=== PATIENT | male | born 1985 | race Caucasian/White ===

== ENCOUNTER 2017-12-07 22:20 | Emergency (ER) | payer BC ==
[2017-12-07] MEDS ORDERED: ONDANSETRON 4 MG/2 ML VIAL IVP STA (23:05)
[2017-12-07] MEDS ORDERED: SODIUM CHLORIDE 0.9% 1,000 ML IV STA (23:05)
[2017-12-07] MEDS ORDERED: PANTOPRAZOLE 40 MG/10 ML VIAL IVP STA (23:05)
--- NOTE | 2017-12-07 23:27 | ED ---
General Adult HPI - General Chief complaint: Nausea/Vomiting/Diarrhea Stated complaint: throwing up blood/SOB/Chest Pain Time Seen by Provider: 12/07/17 22:57 Source: patient, RN notes reviewed Mode of arrival: ambulatory Limitations: no limitations - History of Present Illness Initial comments: Patient 32-year-old male who presents emergency room today with multiple complaints. He does admit that over the last few weeks she's had symptoms of nausea and vomiting. Does admit to abdominal pain. He states had similar symptoms to this in the past was worked up several years ago for this with both colonoscopy and EGD. Patient states that he is taking medications for stomach acid. He states seemed to improve for a while but over the last month has had increased symptoms. Patient states that he's also had some lower back pain which she feels is muscular skeletal from all the nausea and vomiting. He also admits that he feels short of breath. Feels a heaviness over his chest. Patient admits that the symptoms better and off and on as well over the last week. Patient denies any other complaints or symptoms. Patient denies any recent fever, chills, numbness or tingling, dysuria or hematuria, constipation or diarrhea, headaches or visual changes, or any other complaints. - Related Data Home Medications Medication Instructions Recorded Confirmed Lisinopril-Hctz (Unknown Dose) 1 tab PO DAILY 12/07/17 12/07/17 Omeprazole [PriLOSEC] 20 mg PO AC-BRKFST 12/07/17 12/07/17 Previous Rx's Medication Instructions Recorded Azithromycin [Zithromax Z-pack] 0 mg PO DIRECTED #6 tab 12/08/17 Famotidine [Pepcid] 20 mg PO BID #20 tablet 12/08/17 Ondansetron Odt [Zofran ODT] 4 mg PO Q8HR PRN #20 tab 12/08/17 Allergies Allergy/AdvReac Type Severity Reaction Status Date / Time amoxicillin Allergy Rash/Hives Verified 12/07/17 22:37 Review of Systems ROS Statement: Those systems with pertinent positive or pertinent negative responses have been documented in the HPI. ROS Other: All systems not noted in ROS Statement are negative. Past Medical History Past Medical History: Hypertension History of Any Multi-Drug Resistant Organisms: None Reported Past Surgical History: No Surgical Hx Reported Past Psychological History: Anxiety Smoking Status: Never smoker Past Alcohol Use History: Occasional Past Drug Use History: None Reported General Exam - General Exam Comments Initial Comments: General: The patient is awake and alert, in no distress, and does not appear acutely ill. Eye: Pupils are equal, round and reactive to light, extra-ocular movements are intact. No nystagmus. There is normal conjunctiva bilaterally. No signs of icterus. Ears, nose, mouth and throat: There are moist mucous membranes and no oral lesions. Neck: The neck is supple, there is no tenderness or JVD. Cardiovascular: There is a regular rate and rhythm. No murmur, rub or gallop is appreciated. Respiratory: Lungs are clear to auscultation, respirations are non-labored, breath sounds are equal. No wheezes, stridor, rales, or rhonchi. Gastrointestinal: Normal. His the abdomen. Normal bowel sounds. Abdomen soft on palpation. Patient does have tenderness epigastric right upper quadrants. No rebound tenderness. No guarding. Musculoskeletal: Normal ROM, no tenderness. Strength 5/5. Sensation intact. Pulses equal bilaterally 2+. Neurological: A&O x 3. CN II-XII intact, There are no obvious motor or sensory deficits. Coordination appears grossly intact. Speech is normal. Skin: Skin is warm and dry and no rashes or lesions are noted. Psychiatric: Cooperative, appropriate mood & affect, normal judgment. Limitations: no limitations Course Vital Signs 12/07/17 22:27 Temperature 99.0 F Pulse Rate 120 H Respiratory 18 Rate Blood Pressure 157/102 O2 Sat by Pulse 94 L Oximetry Medical Decision Making - Medical Decision Making Case discussed in detail with attending physician Dr. Ceja. Patient is also reviewed and shows no evidence of cholecystitis. No cholelithiasis. Patient's labs been reviewed. Mildly elevated CK level. Troponin negative. Chest x-ray reviewed shows poor inspiratory effort but possibility of infiltrate in the lower lung adamson. Patient does admit to some cough congestion over the last few weeks. He doesn't speak production. Patient will be given dose of Rocephin here in emergency room. Will be treated with azithromycin to cover for possible pneumonia. Patient will also be treated with nausea medication for her symptoms and advised to use Pepcid as well. He is advised follow-up with his family doctor also given GI follow-up with. Advised return here to the emergency room symptoms increase worsen or for any other concerns. - Lab Data Result diagrams: 12/07/17 23:29 12/07/17 23:29 Lab Results 12/07/17 12/07/17 12/07/17 Range/Units 23:29 23:29 23:29 WBC 9.6 (3.8-10.6) k/uL RBC 5.35 (4.30-5.90) m/uL Hgb 14.4 (13.0-17.5) gm/dL Hct 45.3 (39.0-53.0) % MCV 84.6 (80.0-100.0) fL MCH 26.9 (25.0-35.0) pg MCHC 31.8 (31.0-37.0) g/dL RDW 14.9 (11.5-15.5) % Plt Count 347 (150-450) k/uL Neutrophils % 80 % Lymphocytes % 9 % Monocytes % 5 % Eosinophils % 3 % Basophils % 0 % Neutrophils # 7.7 (1.3-7.7) k/uL Lymphocytes # 0.9 L (1.0-4.8) k/uL Monocytes # 0.5 (0-1.0) k/uL Eosinophils # 0.3 (0-0.7) k/uL Basophils # 0.0 (0-0.2) k/uL PT (9.0-12.0) sec INR (<1.2) APTT (22.0-30.0) sec D-Dimer (<0.60) mg/L FEU Sodium 139 (137-145) mmol/L Potassium 4.0 (3.5-5.1) mmol/L Chloride 100 (98-107) mmol/L Carbon Dioxide 26 (22-30) mmol/L Anion Gap 13 mmol/L BUN 12 (9-20) mg/dL Creatinine 0.90 (0.66-1.25) mg/dL Est GFR (MDRD) Af Amer >60 (>60 ml/min/1.73 sqM) Est GFR (MDRD) Non-Af >60 (>60 ml/min/1.73 sqM) Glucose 111 H (74-99) mg/dL Calcium 9.5 (8.4-10.2) mg/dL Total Bilirubin 0.3 (0.2-1.3) mg/dL AST 35 (17-59) U/L ALT 71 (21-72) U/L Alkaline Phosphatase 81 (38-126) U/L Total Creatine Kinase 589 H (55-170) U/L CK-MB (CK-2) 3.4 H* (0.0-2.4) ng/mL CK-MB (CK-2) Rel Index 0.6 Troponin I <0.012 (0.000-0.034) ng/mL Total Protein 7.2 (6.3-8.2) g/dL Albumin 4.1 (3.5-5.0) g/dL Amylase 43 (30-110) U/L Lipase 46 (23-300) U/L Urine Color Urine Appearance (Clear) Urine pH (5.0-8.0) Ur Specific [place] (1.001-1.035) Urine Protein (Negative) Urine Glucose (UA) (Negative) Urine Ketones (Negative) Urine Blood (Negative) Urine Nitrite (Negative) Urine Bilirubin (Negative) Urine Urobilinogen (<2.0) mg/dL Ur Leukocyte Esterase (Negative) 12/07/17 12/08/17 Range/Units 23:29 00:30 WBC (3.8-10.6) k/uL RBC (4.30-5.90) m/uL Hgb (13.0-17.5) gm/dL Hct (39.0-53.0) % MCV (80.0-100.0) fL MCH (25.0-35.0) pg MCHC (31.0-37.0) g/dL RDW (11.5-15.5) % Plt Count (150-450) k/uL Neutrophils % % Lymphocytes % % Monocytes % % Eosinophils % % Basophils % % Neutrophils # (1.3-7.7) k/uL Lymphocytes # (1.0-4.8) k/uL Monocytes # (0-1.0) k/uL Eosinophils # (0-0.7) k/uL Basophils # (0-0.2) k/uL PT 10.0 (9.0-12.0) sec INR 1.0 (<1.2) APTT 23.9 (22.0-30.0) sec D-Dimer 0.20 (<0.60) mg/L FEU Sodium (137-145) mmol/L Potassium (3.5-5.1) mmol/L Chloride (98-107) mmol/L Carbon Dioxide (22-30) mmol/L Anion Gap mmol/L BUN (9-20) mg/dL Creatinine (0.66-1.25) mg/dL Est GFR (MDRD) Af Amer (>60 ml/min/1.73 sqM) Est GFR (MDRD) Non-Af (>60 ml/min/1.73 sqM) Glucose (74-99) mg/dL Calcium (8.4-10.2) mg/dL Total Bilirubin (0.2-1.3) mg/dL AST (17-59) U/L ALT (21-72) U/L Alkaline Phosphatase (38-126) U/L Total Creatine Kinase (55-170) U/L CK-MB (CK-2) (0.0-2.4) ng/mL CK-MB (CK-2) Rel Index Troponin I (0.000-0.034) ng/mL Total Protein (6.3-8.2) g/dL Albumin (3.5-5.0) g/dL Amylase (30-110) U/L Lipase (23-300) U/L Urine Color Yellow Urine Appearance Clear (Clear) Urine pH 7.5 (5.0-8.0) Ur Specific [place] 1.016 (1.001-1.035) Urine Protein Negative (Negative) Urine Glucose (UA) Negative (Negative) Urine Ketones Negative (Negative) Urine Blood Negative (Negative) Urine Nitrite Negative (Negative) Urine Bilirubin Negative (Negative) Urine Urobilinogen <2.0 (<2.0) mg/dL Ur Leukocyte Esterase Negative (Negative) Disposition Clinical Impression: Community acquired pneumonia, Abdominal pain, Nausea & vomiting Disposition: HOME SELF-CARE Condition: Good Instructions: Acute Nausea and Vomiting (ED) Additional Instructions: Please use medication as discussed. Please follow-up with GI/family doctor in the next 2 days of symptoms have not improved. Please return to emergency room if the symptoms increase or worsen or for any other concerns. Prescriptions: Azithromycin [Zithromax Z-pack] 0 mg PO DIRECTED #6 tab Famotidine [Pepcid] 20 mg PO BID #20 tablet Ondansetron Odt [Zofran ODT] 4 mg PO Q8HR PRN #20 tab PRN Reason: Nausea Referrals: Tacho Jain MD [Primary Care Provider] - 1-2 days Vika Saldivar MD [STAFF PHYSICIAN] - 1-2 days Time of Disposition: 01:04
[2017-12-07 23:38] LABS: Basophils % (A) 0 %; Eosinophils # (A) 0.3 k/uL (0-0.7); Eosinophils % (A) 3 %; HCT 45.3 % (39.0-53.0); HGB 14.4 gm/dL (13.0-17.5); Lymphocytes # (A) 0.9 k/uL (1.0-4.8); Lymphocytes % (A) 9 %; MCH 26.9 pg (25.0-35.0); MCHC 31.8 g/dL (31.0-37.0); MCV 84.6 fL (80.0-100.0); Mean Platelet Volume 6.9; Monocytes # (A) 0.5 k/uL (0-1.0); Monocytes % (A) 5 %; Neutrophils # (A) 7.7 k/uL (1.3-7.7); Neutrophils % (A) 80 %; Platelet Count 347 k/uL (150-450); RBC 5.35 m/uL (4.30-5.90); RDW 14.9 % (11.5-15.5); WBC 9.6 k/uL (3.8-10.6)
[2017-12-07 23:47] LABS: D-Dimer 0.2 mg/L FEU (<0.60)
[2017-12-07 23:51] LABS: ALT 71 U/L (21-72); AST 35 U/L (17-59); Albumin 4.1 g/dL (3.5-5.0); Alkaline Phosphatase 81 U/L (38-126); Amylase 43 U/L (30-110); Anion Gap 13 mmol/L; Blood Urea Nitrogen 12 mg/dL (9-20); Calcium 9.5 mg/dL (8.4-10.2); Carbon Dioxide 26 mmol/L (22-30); Chloride 100 mmol/L (98-107); Glucose 111 mg/dL (74-99); Lipase 46 U/L (23-300); Partial Thromboplastin Time 23.9 sec (22.0-30.0); Sodium 139 mmol/L (137-145); Total Bilirubin 0.3 mg/dL (0.2-1.3); Total Protein 7.2 g/dL (6.3-8.2)
[2017-12-08 00:06] LABS: Creatine Kinase 589 U/L (55-170)
[2017-12-08 00:18] LABS: Troponin I <0.012 ng/mL (0.000-0.034)
--- NOTE | 2017-12-08 00:21 | XR ---
EXAM: XR Chest, 2 Views CLINICAL HISTORY: SOB TECHNIQUE: Frontal and lateral views of the chest. COMPARISON: 01/05/2016. FINDINGS: Lungs: Low lung volumes with probable predominantly bibasilar atelectatic changes. Bibasilar infiltrates cannot be definitively excluded. Peribronchial cuffing is suggested, which may represent mild pulmonary edema versus inflammatory airways disease. This also may be secondary to low lung volumes. Pleural space: No pleural effusions. No pneumothorax. Heart: Unremarkable. No cardiomegaly. Mediastinum: Unremarkable. Bones/joints: Osseous structures are unchanged. IMPRESSION: 1. Low lung volumes with probable predominantly bibasilar atelectatic changes. Bibasilar infiltrates cannot be definitively excluded. 2. Peribronchial cuffing is suggested, which may represent mild pulmonary edema versus inflammatory airways disease. This also may be secondary to low lung volumes. Correlate clinically.
--- NOTE | 2017-12-08 00:26 | US ---
EXAM: US Abdomen Limited, Right Upper Quadrant CLINICAL HISTORY: Right upper quadrant pain TECHNIQUE: Real-time ultrasound of the right upper quadrant with image documentation. COMPARISON: No relevant prior studies available. FINDINGS: Limitations: Exam was limited secondary to patient body habitus. Liver: There is a diffuse increase in the echogenicity of the liver consistent with hepatic steatosis. No intrahepatic bile duct dilation. Gallbladder: Unremarkable. No gallstones. A sonographic Crocker's sign was not elicited during the exam. Common bile duct: The CBD measures up to 0.5 cm, which is normal. No stones. No dilation. Pancreas: The pancreas was obscured by overlying bowel gas. Right kidney: The right kidney measures up to 11.8 cm in length. No stones. No hydronephrosis. IMPRESSION: Hepatic steatosis.
[2017-12-08 00:28] LABS: Creatine Kinase MB 3.4 ng/mL (0.0-2.4)
[2017-12-08 00:42] LABS: Appearance,Urine Clear (Clear); Bilirubin,Urine Negative (Negative); Blood,Urine Negative (Negative); Color,Urine Yellow; Glucose,Urine (UA) Negative (Negative); Ketones,Urine Negative (Negative); Leukocyte Esterase,Urine Negative (Negative); Nitrite,Urine Negative (Negative); PH, Urine 7.5 (5.0-8.0); Protein,Urine Negative (Negative); Specific Gravity,Urine 1.016 (1.001-1.035); Urobilinogen,Urine <2.0 mg/dL (<2.0)
[2017-12-08] MEDS ORDERED: cefTRIAXone IN SWFI 1,000 MG/10 ML SYRINGE IVP STA (01:04)
[2017-12-08 01:25] VITALS: BP 147/84; PULSE 108; RESP 17; TEMP 97.9
== END 2017-12-08 01:25 | disposition home or self-care (01) ==
LOC: EC 22:20
DX: R11.2 Nausea with vomiting, unspecified (principal); J18.9 Pneumonia, unspecified organism; R10.9 Unspecified abdominal pain; I10 Essential (primary) hypertension; Z79.899 Other long term (current) drug therapy; Z88.0 Allergy status to penicillin
CPT/HCPCS: 36415; 93005; 85379; 80053; 82150; 82550; 82553; 83690; 84484; 85025; 85610; 85730; 81003; 71046; 76705; 99284; 96374; 96375 ×2; 96361; J2405; J0696; C9113

== ENCOUNTER 2018-06-12 09:06 | Emergency (ER) | payer BC ==
[2018-06-12 09:17] VITALS: RESP 18
[2018-06-12 09:26] VITALS: BP 160/65; PULSE 90; TEMP 97.8
--- NOTE | 2018-06-12 09:48 | XR ---
EXAMINATION TYPE: XR ankle complete RT DATE OF EXAM: 06/12/2018 CLINICAL HISTORY: Right ankle and right heel pain for 2 months after rolling injury TECHNIQUE: Frontal, lateral and oblique images of the right ankle are obtained. COMPARISON: None. FINDINGS: There is no acute fracture/dislocation evident in the right ankle. The ankle mortise appe ars within normal limits. The overlying soft tissue appears unremarkable. Small Achilles and plantar enthesophytes/heel spurs are present. IMPRESSION: There is no acute fracture or dislocation in the right ankle. Considering the persistent symptoms MRI could be performed nonemergently to evaluate for ligamentous/soft tissue injury.
--- NOTE | 2018-06-12 09:57 | ED ---
Extremity Problem HPI - General Chief complaint: Extremity Problem,Nontraumatic Stated complaint: rt ankle injury Time Seen by Provider: 06/12/18 09:17 Source: patient, RN notes reviewed Mode of arrival: ambulatory Limitations: no limitations - History of Present Illness Initial comments: 32-year-old male presents emergency Department with chief complaint of right foot and ankle pain. He states she's been having some issues over the last couple months states that he is tried different orthotics, shoes. He states he especially feels that when he plays softball. He states last night he was running to first landed on first and states that he felt a sharp pain which to the ground. He states the pain starts from his heel with across the arch of his foot but he does have some pain towards the posterior aspect of his leg. Patient denies any paresthesias denies any recent fractures. - Related Data Home Medications Medication Instructions Recorded Confirmed Omeprazole [PriLOSEC] 20 mg PO AC-BRKFST 12/07/17 06/12/18 Dextroamphetamine/Amphetamine 20 mg PO BID 06/12/18 06/12/18 [Adderall] Lisinopril-Hctz 20-12.5 mg 1 tab PO DAILY 06/12/18 06/12/18 [Zestoretic 20-12.5] Previous Rx's Medication Instructions Recorded predniSONE 50 mg PO DAILY #5 tab 06/12/18 Allergies Allergy/AdvReac Type Severity Reaction Status Date / Time amoxicillin Allergy Rash/Hives Verified 06/12/18 09:39 Review of Systems ROS Statement: Those systems with pertinent positive or pertinent negative responses have been documented in the HPI. ROS Other: All systems not noted in ROS Statement are negative. Past Medical History Past Medical History: GERD/Reflux, Hypertension Additional Past Medical History / Comment(s): adhd History of Any Multi-Drug Resistant Organisms: None Reported Past Surgical History: No Surgical Hx Reported Past Psychological History: ADD/ADHD, Anxiety Smoking Status: Never smoker Past Alcohol Use History: Occasional Past Drug Use History: None Reported General Exam Limitations: no limitations General appearance: alert, in no apparent distress Head exam: Present: atraumatic, normocephalic, normal inspection Eye exam: Present: normal appearance, PERRL, EOMI. Absent: scleral icterus, conjunctival injection, periorbital swelling Respiratory exam: Present: normal lung sounds bilaterally. Absent: respiratory distress, wheezes, rales, rhonchi, stridor Cardiovascular Exam: Present: regular rate, normal rhythm, normal heart sounds. Absent: systolic murmur, diastolic murmur, rubs, gallop, clicks Extremities exam: Present: other (Tenderness of the right heel and arch of the foot. There is no ecchymosis erythema pulses equal bilaterally there is no tenderness over lateral or medial malleoli region) Skin exam: Present: warm, dry, intact, normal color. Absent: rash Course Vital Signs 06/12/18 06/12/18 09:13 09:25 Temperature 98.0 F 97.8 F Pulse Rate 96 90 Respiratory 18 18 Rate Blood Pressure 165/108 160/65 O2 Sat by Pulse 94 L 96 Oximetry Medical Decision Making - Medical Decision Making 32-year-old male presented for right foot pain. This seems to be more chronic issue which is been worsening secondary to flat feet plantar fasciitis. Patient is advised to follow-up with Dr. calderon foot and ankle specialist that he needs to wear supportive shoes apply ice to it daily. Disposition Clinical Impression: Plantar fasciitis of right foot Disposition: HOME SELF-CARE Condition: Stable Instructions: Plantar Fasciitis Exercises (ED), Plantar Fasciitis (ED) Additional Instructions: Please return to the Emergency Department if symptoms worsen or any other concerns. Prescriptions: predniSONE 50 mg PO DAILY #5 tab Is patient prescribed a controlled substance at d/c from ED?: No Referrals: Tacho Jain MD [Primary Care Provider] - 1-2 days Saad Brown MD [Medical Doctor] - 1-2 days Time of Disposition: 09:57
[2018-06-12] MEDS ORDERED: ACET/COD 300 MG/30 MG STARTER PACK 6 TAB BTL PO STA (10:01)
== END 2018-06-12 10:21 | disposition home or self-care (01) ==
LOC: EC 09:06
DX: M72.2 Plantar fascial fibromatosis (principal); K21.9 Gastro-esophageal reflux disease without esophagitis; I10 Essential (primary) hypertension; F90.9 Attention-deficit hyperactivity disorder, unspecified type; Z79.899 Other long term (current) drug therapy; Z88.0 Allergy status to penicillin
CPT/HCPCS: 99283

== ENCOUNTER 2018-12-20 15:27 | Emergency (ER) | payer BC, OTHER ==
[2018-12-20] MEDS ORDERED: SODIUM CHLORIDE 0.9% 1,000 ML IV STA ×2 (15:43→18:34)
--- NOTE | 2018-12-20 16:01 | ED ---
Chest Pain HPI - General Chief Complaint: Chest Pain Stated Complaint: Chest pain, arm numbness Time Seen by Provider: 12/20/18 15:43 Source: patient, RN notes reviewed, old records reviewed Mode of arrival: ambulatory Limitations: no limitations - History of Present Illness Initial Comments: This is a 33-year-old male the ER for evaluation. Patient relates today for evaluation of chest pain chest pain abdominal pain. Patient had recent diagnosis of upper respiratory infection bronchitis, states he still is consistent and persistent cough. Patient was at work today had a bowel movement then fell using pass out had left arm pain left arm tingling. Patient also has severe abdominal pain and suprapubic type pain was wrong is periumbilical pain. Bowel movement was normal no blood. Mild nausea no vomiting. Mild diaphoresis no shortness of breath MD Complaint: chest pain, other (Abdominal pain) -: days(s) (4) Onset: other (With bowel movement) Pain Location: left chest, epigastric, other (Periumbilical periumbilical) Pain Radiation: LUE Severity: mild Severity scale (1-10): 3 Quality: tightness, aching Consistency: constant Improves With: nothing, eating Worsens With: exertion Context: recent illness Anginal Symptoms: nausea, diaphoresis, dyspnea Treatments Prior to Arrival: none - Related Data Home Medications Medication Instructions Recorded Confirmed Omeprazole [PriLOSEC] 20 mg PO AC-BRKFST 12/07/17 12/20/18 Dextroamphetamine/Amphetamine 20 mg PO BID 06/12/18 12/20/18 [Adderall] Ciprofloxacin HCl [Cipro] 500 mg PO BID 12/20/18 12/20/18 Lisinopril 20 mg PO DAILY 12/20/18 12/20/18 Allergies Allergy/AdvReac Type Severity Reaction Status Date / Time amoxicillin Allergy Rash/Hives Verified 12/20/18 18:26 Review of Systems ROS Statement: Those systems with pertinent positive or pertinent negative responses have been documented in the HPI. ROS Other: All systems not noted in ROS Statement are negative. EKG Findings - EKG Comments: EKG Findings:: EKG shows sinus tachycardia rate 112, MN 146, QRS 96, QTc 43 Past Medical History Past Medical History: GERD/Reflux, Hypertension Additional Past Medical History / Comment(s): adhd History of Any Multi-Drug Resistant Organisms: None Reported Past Surgical History: No Surgical Hx Reported Past Psychological History: ADD/ADHD, Anxiety Smoking Status: Never smoker Past Alcohol Use History: Rare Past Drug Use History: None Reported General Exam Limitations: no limitations General appearance: alert, in no apparent distress Head exam: Present: atraumatic, normocephalic, normal inspection Eye exam: Present: normal appearance, PERRL, EOMI. Absent: scleral icterus, conjunctival injection, periorbital swelling ENT exam: Present: normal exam, mucous membranes moist Neck exam: Present: normal inspection. Absent: tenderness, meningismus, lymphadenopathy Respiratory exam: Present: normal lung sounds bilaterally. Absent: respiratory distress, wheezes, rales, rhonchi, stridor Cardiovascular Exam: Present: normal rhythm, tachycardia, normal heart sounds. Absent: systolic murmur, diastolic murmur, rubs, gallop, clicks GI/Abdominal exam: Present: soft, normal bowel sounds. Absent: distended, tenderness, guarding, rebound, rigid Extremities exam: Present: normal inspection, full ROM, normal capillary refill. Absent: tenderness, pedal edema, joint swelling, calf tenderness Back exam: Present: normal inspection Neurological exam: Present: alert, oriented X3, CN II-XII intact Psychiatric exam: Present: normal affect, normal mood Skin exam: Present: warm, dry, intact, normal color. Absent: rash Course Vital Signs 12/20/18 12/20/18 12/20/18 15:30 15:48 17:09 Temperature 98.1 F 98.0 F Pulse Rate 107 H 100 Respiratory 18 16 Rate Blood Pressure 148/88 128/75 O2 Sat by Pulse 99 96 98 Oximetry 12/20/18 12/20/18 17:30 18:57 Temperature Pulse Rate 101 H 98 Respiratory 17 16 Rate Blood Pressure 119/85 149/90 O2 Sat by Pulse 98 98 Oximetry - Reevaluation(s) Reevaluation #1: 12/20/18 18:37 Medical record is reviewed noncontributory Reevaluation #2: 12/20/18 18:38 Patient has pain control Chest Pain MDM - MDM 33 male the ER with not so chest pain nonspecific abdominal pain, CT chest and pelvis negative for acute disease. Patient can be discharged home Disposition Clinical Impression: Chest pain, Abdominal pain Disposition: HOME SELF-CARE Condition: Good Instructions (If sedation given, give patient instructions): Chest Pain (ED), Abdominal Pain (ED) Is patient prescribed a controlled substance at d/c from ED?: No Referrals: None,Stated [REFERRING] - 1-2 days
[2018-12-20 16:25] LABS: Basophils % (A) 0 %; Eosinophils # (A) 0.3 k/uL (0-0.7); Eosinophils % (A) 3 %; HCT 46.8 % (39.0-53.0); HGB 14.8 gm/dL (13.0-17.5); Lymphocytes % (A) 16 %; MCH 26.4 pg (25.0-35.0); MCHC 31.7 g/dL (31.0-37.0); MCV 83.5 fL (80.0-100.0); Mean Platelet Volume 6.1; Monocytes # (A) 0.7 k/uL (0-1.0); Monocytes % (A) 5 %; Neutrophils # (A) 8.8 k/uL (1.3-7.7); Neutrophils % (A) 70 %; Platelet Count 402 k/uL (150-450); RBC 5.61 m/uL (4.30-5.90); RDW 13.2 % (11.5-15.5); WBC 12.4 k/uL (3.8-10.6)
[2018-12-20 16:33] LABS: ALT 75 U/L (21-72); AST 52 U/L (17-59); Albumin 4.1 g/dL (3.5-5.0); Alkaline Phosphatase 98 U/L (38-126); Anion Gap 14 mmol/L; Blood Urea Nitrogen 16 mg/dL (9-20); Calcium 9.4 mg/dL (8.4-10.2); Carbon Dioxide 24 mmol/L (22-30); Chloride 100 mmol/L (98-107); Glucose 113 mg/dL (74-99); Lipase 40 U/L (23-300); Magnesium 1.5 mg/dL (1.6-2.3); Potassium 4.1 mmol/L (3.5-5.1); Sodium 138 mmol/L (137-145); Total Bilirubin 0.5 mg/dL (0.2-1.3); Total Protein 7.5 g/dL (6.3-8.2)
--- NOTE | 2018-12-20 16:38 | XR ---
EXAMINATION: XR chest 2V DATE AND TIME: 12/20/2018 4:27 PM CLINICAL INDICATION: PHH; Chest Pain TECHNIQUE: Departmental protocol COMPARISON: 12/08/2017 FINDINGS: The lungs are clear. The pleural spaces are negative. The cardiac silhouette is not enlarged. The remainder of the mediastinal silhouette is unremarkable. The skeletal structures and soft tissues are negative for acute findings. IMPRESSION: NO ACUTE PROCESS.
[2018-12-20 17:03] LABS: Creatine Kinase MB 4.2 ng/mL (0.0-2.4); Troponin I <0.012 ng/mL (0.000-0.034)
[2018-12-20 17:04] LABS: D-Dimer <0.17 mg/L FEU (<0.60); INR 0.9 (<1.2); Prothrombin Time 10.1 sec (9.0-12.0)
[2018-12-20 17:05] LABS: Creatine Kinase 1455 U/L (55-170)
--- NOTE | 2018-12-20 18:16 | CT ---
EXAMINATION TYPE: CT angio chest with contrast and with 3-D reconstruction renderings DATE OF EXAM: 12/20/2018 5:37 PM COMPARISON: None HISTORY: Left sided chest pain. CT DLP: 653.8 mGycm Automated exposure control for dose reduction was used. CONTRAST: CTA scan of the thorax is performed with IV Contrast, patient injected with 100 mL of Isovu e 370, pulmonary embolism protocol. 3-D reconstructions. FINDINGS: AIRWAYS, LUNGS, PLEURAL SPACES: The tracheobronchial tree is patent. The lungs are grossly clear, the re is no concerning parenchymal mass or nodule identified. There is no pleural effusion or pneumothor ax seen. MEDIASTINUM: There is satisfactory enhancement of the pulmonary artery and its branches, there is no CT evidence for pulmonary embolism. No acute aortic findings. There is no cardiomegaly. No pericardi al effusion is seen. There are no greater than 1 cm hilar or mediastinal lymph nodes. OTHER: No additional significant abnormality is seen. IMPRESSION: NO ACUTE PROCESS.
[2018-12-20] MEDS ORDERED: MORPHINE SULFATE 4 MG/ML SYRINGE IVP STA (18:34)
[2018-12-20] MEDS ORDERED: ONDANSETRON 4 MG/2 ML VIAL IVP STA (18:35)
--- NOTE | 2018-12-20 19:25 | CT ---
EXAMINATION TYPE: CT abdomen pelvis wo con DATE OF EXAM: 12/20/2018 COMPARISON: HISTORY: Abdominal and chest pain CT DLP: 1293.4 mGycm Automated exposure control for dose reduction was used. TECHNIQUE: Chest CTA was obtained with IV contrast earlier today. Helical acquisition of images was p erformed from the lung bases through the pelvis. FINDINGS: Radiographic contrast on the previous chest CTA opacifies the collecting systems and urinar y bladder. LUNG BASES: No significant abnormality is appreciated. LIVER/GB: No significant abnormality is appreciated. PANCREAS: No significant abnormality is seen. SPLEEN: No significant abnormality is seen. ADRENALS: No significant abnormality is seen. KIDNEYS: No significant abnormality is seen. FREE AIR: No free air is visualized RETROPERITONEAL ADENOPATHY: None visualized REPRODUCTIVE ORGANS: No significant abnormality is seen URINARY BLADDER: No significant abnormality is seen. PELVIC ADENOPATHY: None visualized. OSSEOUS STRUCTURES: No significant abnormality is seen. BOWEL: No significant abnormality is seen. Appendix is unremarkable. OTHER: The vasculature is negative as seen. IMPRESSION: NO ACUTE PROCESS.
[2018-12-20] MEDS ORDERED: Acetaminophen-Codeine 300-30mg TAB PO STA (19:53)
[2018-12-20] MEDS ORDERED: ACET/COD 300 MG/30 MG STARTER PACK 6 TAB BTL PO STA (19:53)
[2018-12-20 20:30] VITALS: BP 130/79; PULSE 99; RESP 18; TEMP 97.9
== END 2018-12-20 20:28 | disposition home or self-care (01) ==
LOC: EC 15:27
DX: R07.89 Other chest pain (principal); R10.13 Epigastric pain; R10.33 Periumbilical pain; R05 Cough; K21.9 Gastro-esophageal reflux disease without esophagitis; I10 Essential (primary) hypertension; F90.9 Attention-deficit hyperactivity disorder, unspecified type; F41.9 Anxiety disorder, unspecified; Z79.899 Other long term (current) drug therapy; Z88.0 Allergy status to penicillin; Z53.29 Procedure and treatment not carried out because of patient's decision for other reasons
CPT/HCPCS: 36415; 93005; 85379; 83880; 80053; 82550; 82553; 83690; 83735; 84484; 85025; 85610; 85730; 71046; 71275; 74176; 99285; 96374; 96361 ×2; J2270; Q9967

== ENCOUNTER 2022-02-07 10:14 | Emergency (ER) | payer OTHER ==
[2022-02-07 10:19] VITALS: PULSE 100; RESP 18; TEMP 97.8
[2022-02-07 10:21] VITALS: BP 165/103
--- NOTE | 2022-02-07 10:33 | ED ---
General Adult HPI - General Chief complaint: Extremity Injury, Lower Stated complaint: lt foot injury Time Seen by Provider: 02/07/22 10:20 Source: patient Mode of arrival: ambulatory Limitations: no limitations - History of Present Illness Initial comments: This 36-year-old male with a past medical history of GERD and hypertension presents to the emergency Department with right dorsal surface foot pain 1 month, worsening today after he slipped on ice and twisted ankle this morning. He states he got new shoes for work and states that could be the cause of the top of his foot beginning to hurt last month. Patient states on metatarsals 3 and 4 he has been experiencing pain x1 month. Patient states for the last month he has been putting Biofreeze over that area. He states he began to feel better until this morning when he went to let the dog outside and slipped going down the steps, twisting his left ankle. Patient states he did feel a pop at this time on the top of his left foot. Patient denies falling. Patient denies being on any blood thinners. Patient denies any trauma or surgeries to this foot in the past. Patient states pain is 6/10. Patient states it does hurt to stand and put weight on the left foot, however he is still able to walk around and has full range of motion and sensation. Patient denies taking any medications due to him stating that Motrin causes cramping in his muscles. Patient denies any chest pain, shortness breath, abdominal pain, nausea, vomiting, back pain, headache, lightheadedness, dizziness, weakness. - Related Data Home Medications Medication Instructions Recorded Confirmed Omeprazole [PriLOSEC] 20 mg PO AC-BRKFST 12/07/17 12/20/18 Dextroamphetamine/Amphetamine 20 mg PO BID 06/12/18 12/20/18 [Adderall] Ciprofloxacin HCl [Cipro] 500 mg PO BID 12/20/18 12/20/18 lisinopriL 20 mg PO DAILY 12/20/18 12/20/18 Allergies Allergy/AdvReac Type Severity Reaction Status Date / Time amoxicillin Allergy Rash/Hives Verified 12/14/19 14:49 Review of Systems ROS Statement: Those systems with pertinent positive or pertinent negative responses have been documented in the HPI. ROS Other: All systems not noted in ROS Statement are negative. Past Medical History Past Medical History: GERD/Reflux, Hypertension Additional Past Medical History / Comment(s): adhd History of Any Multi-Drug Resistant Organisms: None Reported Past Surgical History: No Surgical Hx Reported Past Psychological History: ADD/ADHD, Anxiety Smoking Status: Never smoker Past Alcohol Use History: Rare Past Drug Use History: None Reported General Exam Limitations: no limitations General appearance: alert, in no apparent distress Head exam: Present: atraumatic, normocephalic, normal inspection Eye exam: Present: normal appearance, PERRL, EOMI. Absent: scleral icterus, conjunctival injection, periorbital swelling ENT exam: Present: normal exam, mucous membranes moist Neck exam: Present: normal inspection, full ROM. Absent: tenderness, meningismus, lymphadenopathy Respiratory exam: Present: normal lung sounds bilaterally. Absent: respiratory distress, wheezes, rales, rhonchi, stridor Cardiovascular Exam: Present: regular rate, normal rhythm, normal heart sounds. Absent: systolic murmur, diastolic murmur, rubs, gallop, clicks GI/Abdominal exam: Present: soft, normal bowel sounds. Absent: distended, tende rness, guarding, rebound, rigid Extremities exam: Present: full ROM (Patient with pain to palpation over left third and fourth metatarsals. No pain to palpation over the tarsal bones. No pain to palpation over first, second or fifth metatarsal. Mild tenderness to palpation over medial malleolus.), tenderness (Patient with pain when asked to push and pull left foot against resistance. Patient does have full range of motion, however he has experience pain to the third and fourth metatarsal with movement/palpation), normal capillary refill, other (DP pulses palpable b ilaterally. Skin pink without any erythema or warmth or coolness. Patient is neurovascularly intact.). Absent: pedal edema, joint swelling (No swelling erythema or effusion of the left ankle or foot present.) Back exam: Present: full ROM. Absent: CVA tenderness (R), CVA tenderness (L), paraspinal tenderness, vertebral tenderness Neurological exam: Present: alert, oriented X3, CN II-XII intact Psychiatric exam: Present: normal affect, normal mood Skin exam: Present: warm, dry, intact, normal color. Absent: rash Course Vital Signs 02/07/22 02/07/22 10:17 10:20 Temperature 97.8 F Pulse Rate 100 Respiratory 18 Rate Blood Pressure 165/103 O2 Sat by Pulse 100 Oximetry Medical Decision Making - Medical Decision Making This 36-year-old male presents emergency Department with dorsal surface of left ankle pain 1 month, worse after twisting his foot today when slipping outside on ice. Left foot and ankle x-ray impression: No fracture, dislocation, intraosseous or intra-articular abnormality seen. There is no soft tissue swelling or soft tissue calcification. The ankle mortise is intact. There is a large plantar calcaneal spur with no significant abnormality seen in the ankle. Patient did not want any medication for pain. Patient likely with left foot sprain. David bandage applied to patient's left foot. Patient is able to bear weight on foot. Patient was given orthopedic follow-up and instructed to call if no improvement in the next week. Patient to follow-up with primary care provider next 1-2 days. Strict return precautions were discussed. Patient verbally agreed to plan. Patient sent home in stable condition. Case discussed with my attending, . Disposition Clinical Impression: Sprain of foot, left Disposition: HOME SELF-CARE Condition: Stable Instructions (If sedation given, give patient instructions): Foot Sprain (ED) Additional Instructions: Follow-up with your primary care provider in next 1-2 days. Return to the emergency department with any new, worsening, or concerning symptoms. Can take Tylenol or Motrin for pain relief as directed. Is patient prescribed a controlled substance at d/c from ED?: No Referrals: Nixon Fuller MD [Primary Care Provider] - 1-2 days Colin Paul MD [STAFF PHYSICIAN] - 1-2 days Time of Disposition: 11:00
--- NOTE | 2022-02-07 10:47 | XR ---
Left foot. HISTORY: Pain COMPARISON: None TECHNIQUE: 3 views left foot were obtained. FINDINGS: There is no fracture, dislocation, focal intraosseous or intra-articular abnormality. There is no rad iopaque foreign body or abnormal soft tissue calcification. There is a large plantar calcaneal spur. IMPRESSION: Large plantar calcaneal spur with no other significant abnormality seen.
--- NOTE | 2022-02-07 10:49 | XR ---
Left ankle. HISTORY: Pain. COMPARISON: None. TECHNIQUE: 3 views left ankle were obtained. FINDINGS: There is no fracture, dislocation, intraosseous or intra-articular abnormality. There is no soft tiss ue swelling or soft tissue calcification. The ankle mortise is intact. There is a large plantar calca phu spur. IMPRESSION: Plantar calcaneal spur with no significant abnormality seen in the ankle.
== END 2022-02-07 11:16 | disposition home or self-care (01) ==
LOC: EC 10:14
DX: S93.602A Unspecified sprain of left foot, initial encounter (principal); I10 Essential (primary) hypertension; K21.9 Gastro-esophageal reflux disease without esophagitis; F41.9 Anxiety disorder, unspecified; F90.9 Attention-deficit hyperactivity disorder, unspecified type; Z79.899 Other long term (current) drug therapy; X50.1XXA Overexertion from prolonged static or awkward postures, initial encounter
CPT/HCPCS: 99283

== ENCOUNTER 2025-02-26 14:54 | Emergency (ER) | payer BC ==
[2025-02-26] MEDS: IBUPROFEN 600 MG TAB PO STA (15:15)
--- NOTE | 2025-02-26 15:48 | XR ---
EXAMINATION TYPE: XR elbow complete RT DATE OF EXAM: 02/26/2025 3:40 PM COMPARISON: None CLINICAL INDICATION: Male, 39 years old with history of pain; PHH, pain TECHNIQUE: XR elbow complete RT; elbow was examined in AP, lateral, and oblique projections. FINDINGS: No evidence of any acute osseous pathology, joint dislocation, or soft tissue swelling is n oted. No evidence of joint effusion is present. IMPRESSION: No evidence of fracture. [facility], , 02/26/2025 3:46 PM
--- NOTE | 2025-02-26 16:27 | ED ---
Upper Extremity HPI - General Chief Complaint: Extremity Injury, Upper Stated Complaint: R elbow pain Time Seen by Provider: 02/26/25 15:45 Source: patient, RN notes reviewed Mode of arrival: ambulatory Limitations: no limitations - History of Present Illness Initial Comments: 39 year old male presenting to the ER for evaluation of right elbow pain. Patient states in December he had a fall landing on his right elbow. He states he had x-rays completed at that time which were negative for acute fractures. Patient states pain has progressively getting worse over the past couple of weeks. He states pain is worse with elbow movement. Patient denies any neck or shoulder pain. He was seen at a chiropractor for adjustment which just exace rbated pain. He denies any new injuries or traumas. Denies any paresthesias to the right upper extremity. Patient has not taken any medications for his pain at this time. No other complaints. - Related Data Home Medications Medication Instructions Recorded Confirmed Omeprazole [PriLOSEC] 20 mg PO AC-BRKFST 12/07/17 12/20/18 Dextroamphetamine/Amphetamine 20 mg PO BID 06/12/18 12/20/18 [Adderall] Ciprofloxacin HCl [Cipro] 500 mg PO BID 12/20/18 12/20/18 lisinopriL 20 mg PO DAILY 12/20/18 12/20/18 Allergies Allergy/AdvReac Type Severity Reaction Status Date / Time amoxicillin Allergy Rash/Hives Verified 02/26/25 15:06 Review of Systems ROS Statement: Those systems with pertinent positive or pertinent negative responses have been documented in the HPI. ROS Other: All systems not noted in ROS Statement are negative. Past Medical History Past Medical History: GERD/Reflux, Hypertension Additional Past Medical History / Comment(s): adhd History of Any Multi-Drug Resistant Organisms: None Reported Past Surgical History: No Surgical Hx Reported Past Psychological History: ADD/ADHD, Anxiety Smoking Status: Never smoker Past Alcohol Use History: Rare Past Drug Use History: None Reported General Exam Limitations: no limitations General appearance: alert, in no apparent distress Respiratory exam: Present: normal lung sounds bilaterally. Absent: respiratory distress, wheezes, rales, rhonchi, stridor Cardiovascular Exam: Present: regular rate, normal rhythm, normal heart sounds. Absent: systolic murmur, diastolic murmur, rubs, gallop, clicks Extremities exam: Present: normal inspection, full ROM, tenderness (Right lateral epicondyle), normal capillary refill (2+ right radial pulse) Neurological exam: Present: alert, oriented X3, CN II-XII intact Skin exam: Present: warm, dry, intact, normal color. Absent: rash Course Vital Signs 02/26/25 02/26/25 15:03 16:35 Temperature 98.2 F 98.1 F Pulse Rate 107 H 91 Respiratory 20 18 Rate Blood Pressure 133/89 131/81 O2 Sat by Pulse 99 99 Oximetry Medical Decision Making - Medical Decision Making Was pt. sent in by a medical professional or institution (, PA, JOY LOADER, urgent care, hospital, or usp...) When possible be specific @ -No Did you speak to anyone other than the patient for history (EMS, parent, family, police, friend...)? What history was obtained from this source @ -No Did you review nursing and triage notes (agree or disagree)? Why? @ -I reviewed and agree with nursing and triage notes Were old charts reviewed (outside hosp., previous admission, EMS record, old EKG, old radiological studies, urgent care reports/EKG's, usp records)? Report findings @ -No old charts were reviewed Differential Diagnosis (chest pain, altered mental status, abdominal pain women, abdominal pain men, vaginal bleeding, weakness, fever, dyspnea, syncope, headache, dizziness, GI bleed, back pain, seizure, CVA, palpatations, mental health, musculoskeletal)? @ -ifferential Musculoskeletal: Muscular strain, contusion, ligament sprain, fracture, arthritis, septic arthritis, bursitis, cellulitis, muscle spasm, nerve compression, DVT, arterial occlusion, herpes zoster, electrolyte abnormality, tumor.... This is not meant to be in all inclusive list EKG interpreted by me (3pts min.). @ -None done X-rays interpreted by me (1pt min.). @ -Right elbow x-ray interpreted by me negative for acute fractures or dislocations. CT interpreted by me (1pt min.). @ -None done U/S interpreted by me (1pt. min.). @ -None done What testing was considered but not performed or refused? (CT, X-rays, U/S, labs)? Why? @ -None What meds were considered but not given or refused? Why? @ -None Did you discuss the management of the patient with other professionals (professionals i.e. , PA, JOY LOADER, lab, RT, psych nurse, home health care social worker, ventilation equipment tender, teacher, gift officer, case managers)? Give summary @ -No Was smoking cessation discussed for >3mins.? @ -No Was critical care preformed (if so, how long)? @ -No Were there social determinants of health that impacted care today? How? (Homelessness, low income, unemployed, alcoholism, drug addiction, transportation, low edu. Level, literacy, decrease access to med. care, detention, rehab)? @ -No Was there de-escalation of care discussed even if they declined (Discuss DNR or withdrawal of care, Hospice)? DNR status @ -No What co-morbidities impacted this encounter? (DM, HTN, Smoking, COPD, CAD, Cancer, CVA, ARF, Chemo, Hep., AIDS, mental health diagnosis, sleep apnea, morbid obesity)? @ -None Was patient admitted / discharged? Hospital course, mention meds given and route, prescriptions, significant lab abnormalities, going to OR and other pertinent info. @ -Discharge. 39-year-old male presented the ER for evaluation of right elbow pain. Upon my evaluation, patient resting comfortably on stretcher no signs of acute distress. Right upper extremity is neurovascularly intact. There is mild tenderness noted to distal right lateral epicondyle. X-rays obtained negative for acute process. Patient given ibuprofen for pain control in the emergency department. Pain likely musculoskeletal in nature. I advised [id number] ibuprofen for pain control along with conservative treatment options. Recommended close follow-up with PCP. Strict return parameters discussed. Patient discharged stable condition. Case discussed with ED attending, . Undiagnosed new problem with uncertain prognosis? @ -No Drug Therapy requiring intensive monitoring for toxicity (Heparin, Nitro, Insulin, Cardizem)? @ -No Were any procedures done? @ -No Diagnosis/symptom? @ -Elbow pain Acute, or Chronic, or Acute on Chronic? @ -Acute Uncomplicated (without systemic symptoms) or Complicated (systemic symptoms)? @ -Uncomplicated Side effects of treatment? @ -No Exacerbation, Progression, or Severe Exacerbation? @ -No Poses a threat to life or bodily function? How? (Chest pain, [place], [place], pneumonia, PE, COPD, DKA, ARF, appy, cholecystitis, CVA, Diverticulitis, Homicidal, Suicidal, threat to staff... and all critical care pts) @ -No - Radiology Data Radiology results: report reviewed, image reviewed Disposition Clinical Impression: Elbow pain Disposition: HOME SELF-CARE Condition: Stable Additional Instructions: I recommend [id number] ibuprofen to help with inflammation and pain. You may also take Tylenol. Follow-up closely with PCP. Return to the ER for any new or worsening concerns. Is patient prescribed a controlled substance at d/c from ED?: No Referrals: Mckay Gonzales MD [Primary Care Provider] - 1-2 days Time of Disposition: 16:26
[2025-02-26 16:36] VITALS: BP 131/81; PULSE 91; RESP 18; TEMP 98.1
== END 2025-02-26 16:36 | disposition home or self-care (01) ==
LOC: EC 14:54
DX: M25.521 Pain in right elbow (principal); Z88.0 Allergy status to penicillin; W19.XXXA Unspecified fall, initial encounter
CPT/HCPCS: 99283